=== PATIENT | male | born 1950 | race Caucasian/White ===

== ENCOUNTER 2022-10-22 16:39 | Emergency (ER) | payer MEDICARE ==
[~2022-10-22] VITALS: Ht 180.3 cm; Wt 83.9 kg
[2022-10-22] MEDS ORDERED: MORPHINE SULFATE 2 MG/1 ML DISP.SYRIN IV ONE (17:15)
[2022-10-22] MEDS ORDERED: ONDANSETRON 4 MG/2 ML VIAL IV ONE (17:15)
--- NOTE | 2022-10-22 17:18 | NUR ---
Pt was playing soccer on wood floors w/his grandson. Pt was in bare socks and slippled, landing on his right hip. Distal PMS intact, but limited leg movement due to pain. Pt. denies CP, SOB, dizziness, n/v, no other complaints, limited distress noted -- except when moving pt.
[2022-10-22] MEDS ORDERED: ONDANSETRON 4 MG/2 ML VIAL ONE (17:26)
[2022-10-22] MEDS ORDERED: MORPHINE SULFATE 4 MG/1 ML DISP.SYRIN ONE (17:27)
[2022-10-22 17:44] LABS: HEMATOCRIT 38.5 % (36.7-47.1); MEAN CORPUSCULAR HEMOGLOBIN 31.2 uug (23.8-33.4); MEAN CORPUSCULAR VOLUME 93.1 fL (73.0-96.2); PLATELET COUNT (AUTO) 282 K/uL (152-348)
[2022-10-22 17:51] LABS: CREATININE 1.2 mg/dL (0.6-1.3)
[2022-10-22] MEDS ORDERED: MORPHINE SULFATE 2 MG/1 ML DISP.SYRIN IV PRN (18:45)
[2022-10-22] MEDS ORDERED: HYDROCODONE/APAP 5-325MG TABLET PO PRN (18:45)
[2022-10-22] MEDS ORDERED: IV D5 1/2 NS 1000 ML 1,000 ML IV PRN (18:45)
[2022-10-22] MEDS ORDERED: MAGNESIUM HYDROXIDE 30 ML LIQUID UDC PO PRN (18:45)
[2022-10-22] MEDS ORDERED: ONDANSETRON 4 MG/2 ML VIAL IV PRN (18:45)
[2022-10-22] MEDS ORDERED: REMEDY ESSENTIAL ZINC PASTE 113 GM TP PRN (18:45)
[2022-10-22] MEDS ORDERED: ACETAMINOPHEN 325 MG TABLET PO PRN (18:45)
[2022-10-22] MEDS ORDERED: HYDROCODONE/APAP 5-325MG TABLET ONE (19:33)
--- NOTE | 2022-10-22 19:36 | NUR ---
Patient c/o 04/04 Right hip pain, given [place] 5-325mg PO.
--- NOTE | 2022-10-22 19:37 | NUR ---
Zofran 4mg and Morphine 2mg IV not reassessed at 18:18 by previous nurse. Marked as not done.
--- NOTE | 2022-10-22 20:16 | NUR ---
Spoke to [facility], patient has been accepted. Waiting on Doctor-doctor phone call.
--- NOTE | 2022-10-22 20:29 | NUR ---
Patient has signed transfer form. Daughter at bedside.
--- NOTE | 2022-10-22 20:40 | NUR ---
Patient has been accepted by [facility] by Dr. Davis. Pending transfer.
--- NOTE | 2022-10-22 20:59 | NUR ---
Called [facility] ambulance for patient transfer. 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
--- NOTE | 2022-10-22 21:17 | NUR ---
Patient states he would like to take his home medications tonight: Rosuvastatin Calcium 10mg, Norvasc 5mg, Tamsulosin Hcl 0.4mg PO. Per Dr. Grijalva, given verbal order to give them tonight.
[2022-10-22] MEDS ORDERED: TAMSULOSIN HCL 0.4 MG CAP.SR.24H PO ONE (21:30)
[2022-10-22] MEDS ORDERED: TAMSULOSIN HCL 0.4 MG CAP.SR.24H ONE (21:30)
[2022-10-22] MEDS ORDERED: AMLODIPINE 5 MG TABLET ONE (21:30)
[2022-10-22] MEDS ORDERED: AMLODIPINE 5 MG TABLET PO ONE (21:30)
[2022-10-22 21:35] VITALS: BP 112/60
--- NOTE | 2022-10-22 21:35 | NUR ---
Patient given Norvasc 5mg and Tamsulosin HCL 0.4mg PO.
--- NOTE | 2022-10-22 22:07 | NUR ---
Patient picked up by [id number]. Patient stable, VSS, no signs of distress.
--- NOTE | 2022-10-22 22:08 | NUR ---
Patient's vital signs prior to departure BP: 115/70. Temperature: 98.1. Pulse:92. Respirations 18. SaO2 97% Room air.
--- NOTE | 2022-10-22 22:31 | NUR ---
Report given to Sydnie XIE at [facility]
[2022-10-23] MEDS ORDERED: PANTOPRAZOLE SODIUM 40 MG VIAL IV SCH (09:00)
== END 2022-10-22 22:30 | disposition short-term general hospital (02) ==
LOC: ER 16:39
DX: S72.001A Fracture of unspecified part of neck of right femur, initial encounter for closed fracture (principal); W01.0XXA Fall on same level from slipping, tripping and stumbling without subsequent striking against object, initial encounter; Y93.66 Activity, soccer; Y92.89 Other specified places as the place of occurrence of the external cause; Z98.1 Arthrodesis status; R26.2 Difficulty in walking, not elsewhere classified; I10 Essential (primary) hypertension; Z20.822 Contact with and (suspected) exposure to COVID-19
CPT/HCPCS: 99285; 96374; 71045; 96375; 87426; 80048; 85025; 85730; 36415; 93005; 73502; 94010; 72170; J2405; J2270; A4663